=== PATIENT | female | born 1995 | race Caucasian/White ===

== ENCOUNTER 2018-03-11 09:35 | Emergency (ER) | payer OTHER ==
[~2018-03-11] VITALS: Ht 167.6 cm; Wt 72.6 kg
[~2018-03-11 09:35] MED LIST: ATOM40; Esgic Tablet1 EACH PO; LIDO2L MM; Naprosyn500 MG PO; Norco 5-325 Ta1 EACH PO; PRED15SY PO; TRAM50 PO; Ultram50 MG PO
[2018-03-11] MEDS ORDERED: NYST237S MT (10:54)
== END 2018-03-11 11:00 | disposition home or self-care (01) ==
LOC: ER 09:35
DX: S01.512A Laceration without foreign body of oral cavity, initial encounter (principal); F17.210 Nicotine dependence, cigarettes, uncomplicated; Z91.02 Food additives allergy status; W21.00XA Struck by hit or thrown ball, unspecified type, initial encounter
CPT/HCPCS: 99282

== ENCOUNTER → 2018-07-27 | Outpatient (CLI) | payer OTHER ==
[~2018-07-27] MED LIST changes: +NYST237S MT; +SERT50 PO
[2018-08-01 00:07] LABS: CHLAMYDIA TRACHOMATIS, NAA Negative (Negative); NEISSERIA GONORRHOEAE, NAA Negative (Negative)
== END | disposition home or self-care (01) ==
LOC: LAB SHORT 15:56 → LAB 15:56
PROVIDERS: Family Medicine
DX: Z11.3 Encounter for screening for infections with a predominantly sexual mode of transmission (principal)
CPT/HCPCS: 87491; 87591

== ENCOUNTER 2018-08-11 02:35 | Emergency (ER) | payer OTHER ==
[~2018-08-11] VITALS: Ht 162.6 cm; Wt 70.8 kg
[~2018-08-11 02:35] MED LIST changes: -SERT50 PO
[2018-08-11] MEDS ORDERED: SERT50 PO (02:54)
== END 2018-08-11 03:12 | disposition home or self-care (01) ==
LOC: ER 02:35
DX: K08.89 Other specified disorders of teeth and supporting structures (principal); F17.200 Nicotine dependence, unspecified, uncomplicated; Z91.02 Food additives allergy status; Z79.899 Other long term (current) drug therapy; F17.210 Nicotine dependence, cigarettes, uncomplicated
CPT/HCPCS: 99282; A9270

== ENCOUNTER → 2018-12-17 | Outpatient (CLI) | payer OTHER ==
[~2018-12-17] MED LIST changes: +SERT50 PO
[2018-12-20 03:07] LABS: CHLAMYDIA TRACHOMATIS, NAA Negative (Negative); NEISSERIA GONORRHOEAE, NAA Negative (Negative)
== END | disposition home or self-care (01) ==
LOC: LAB SHORT 13:00 → LAB 13:00
PROVIDERS: Family Medicine
DX: Z11.3 Encounter for screening for infections with a predominantly sexual mode of transmission (principal); N39.0 Urinary tract infection, site not specified
CPT/HCPCS: 87086; 87491; 87591

== ENCOUNTER 2019-01-08 22:46 | Emergency (ER) | payer OTHER ==
[~2019-01-08] VITALS: Ht 162.6 cm; Wt 70.3 kg
[2019-01-08] MEDS ORDERED: Amoxicillin500 MG PO (22:59)
== END 2019-01-08 23:16 | disposition home or self-care (01) ==
LOC: ER 22:46
DX: K08.89 Other specified disorders of teeth and supporting structures (principal); F17.210 Nicotine dependence, cigarettes, uncomplicated
CPT/HCPCS: 99282; A9270

== ENCOUNTER 2020-03-02 00:13 | Emergency (ER) | payer OTHER ==
[~2020-03-02] VITALS: Ht 162.6 cm; Wt 49.9 kg
[~2020-03-02 00:13] MED LIST changes: +Amoxicillin500 MG PO
[2020-03-02] MEDS ORDERED: HYDR1TAB94 PO (00:42)
[2020-03-02] MEDS ORDERED: AMOCLA875 PO (00:42)
== END 2020-03-02 01:00 | disposition home or self-care (01) ==
LOC: ER 00:13
DX: K08.89 Other specified disorders of teeth and supporting structures (principal); Z87.891 Personal history of nicotine dependence
CPT/HCPCS: 99282; A9270

== ENCOUNTER → 2021-04-10 | Outpatient (CLI) | payer OTHER ==
[~2021-04-10] MED LIST changes: +AMOCLA875 PO; +HYDR1TAB94 PO
== END | disposition home or self-care (01) ==
LOC: LAB SHORT 13:27 → LAB 13:27
DX: N39.0 Urinary tract infection, site not specified (principal)
CPT/HCPCS: 87086

== ENCOUNTER → 2021-04-10 | Outpatient (CLI) | payer OTHER ==
[2021-04-12 10:11] LABS: HIV AB/P24 AG SCREEN Non Reactive (Non Reactive)
[2021-04-13 05:11] LABS: CHLAMYDIA BY NAA Negative (Negative); GONOCOCCUS BY NAA Positive (Negative); TRICH VAG BY NAA Negative (Negative)
== END | disposition home or self-care (01) ==
LOC: LAB 13:48 → LAB SHORT 13:48
PROVIDERS: Physician Assistant Surgical
DX: Z72.51 High risk heterosexual behavior (principal)
CPT/HCPCS: 86592; 87389

== ENCOUNTER 2022-06-02 11:17 | Emergency (ER) | payer OTHER ==
[~2022-06-02] VITALS: Ht 162.6 cm; Wt 47.6 kg
[~2022-06-02 11:17] MED LIST changes: +KETO10 PO; +LIDO700A20 TOP
[2022-06-02 11:23] VITALS: BP 125/82
[2022-06-02 12:28] LABS: BASOPHILS ABSOLUTE AUTO 0.07 K/mm3 (0.00-0.23); BASOPHILS PERCENT AUTO 1 % (0-2); EOSINOPHILS ABSOLUTE AUTO 0.36 K/mm3 (0.00-0.68); EOSINOPHILS PERCENT AUTO 5 % (0-6); IMMATURE GRAN ABSOLUTE AUTO 0.01 K/mm3 (0.00-0.10); IMMATURE GRAN PERCENT AUTO 0 % (0-1); LYMPHOCYTES ABSOLUTE AUTO 1.84 K/mm3 (0.84-5.20); LYMPHOCYTES PERCENT AUTO 25 % (21-46); MONOCYTES PERCENT AUTO 11 % (4-13); Mean Corpuscular HGB 27.1 pg (26.0-34.0); Mean Corpuscular HGB Conc 32.4 g/dL (31.5-36.5); Mean Corpuscular Volume 84 fL (80-100); Mean Platelet Volume 9.3 fL (9.1-12.4); NEUTROPHILS PERCENT AUTO 59 % (41-73); Platelet Count 243 K/mm3 (150-400); RDW Coefficient Variation 12.2 % (11.7-14.2); RDW Standard Deviation 37.1 fL (35.1-46.3); Red Blood Cell Count 4.42 M/mm3 (3.80-5.20); White Blood Cell Count 7.48 K/mm3 (4.00-11.30)
[2022-06-02 12:44] LABS: Albumin/Globulin Ratio 1.1 (0.8-1.8); Bilirubin, Total 1.7 mg/dL (0.1-1.0); Bun/Creatinine Ratio 11.4 (12.0-20.0); Creatinine, Blood 0.7 mg/dL (0.40-1.00); Globulin, Blood 3.5 g/dL (2.2-4.0); Potassium, Blood 3.6 mmol/L (3.5-5.5); Total Protein, Blood 7.5 g/dL (6.4-8.2)
[2022-06-05 10:33] LABS: Bilirubin, Direct 0.3 mg/dL (0.0-0.3)
== END 2022-06-02 13:26 | disposition home or self-care (01) ==
LOC: ER 11:17
PROVIDERS: Physician Assistant
DX: I77.6 Arteritis, unspecified (principal); Z87.891 Personal history of nicotine dependence
CPT/HCPCS: 36415; 80053; 82248; 85025; 99282

== ENCOUNTER 2022-06-12 15:51 | Emergency (ER) | payer OTHER ==
[~2022-06-12] VITALS: Ht 162.6 cm; Wt 47.6 kg
[2022-06-12 16:06] VITALS: BP 117/73
== END 2022-06-12 17:13 | disposition home or self-care (01) ==
LOC: ER 15:51
DX: S62.346A Nondisplaced fracture of base of fifth metacarpal bone, right hand, initial encounter for closed fracture (principal); W22.8XXA Striking against or struck by other objects, initial encounter; Z87.891 Personal history of nicotine dependence
CPT/HCPCS: 73130

== ENCOUNTER → 2023-03-28 | Outpatient (CLI) | payer OTHER ==
[~2023-03-28] MED LIST changes: +CEPH500 PO; +Cephalexin250 MG/5 M PO; +METR500 PO; +MIRT15 PO; +ONDA4ODT MM
[2023-03-31 13:37] LABS: APTIMA MEDIA TYPE Urine; C. TRACHOMATIS BY TMA Negative (Negative); N. GONORRHOEAE BY TMA Negative (Negative); SPECIMEN SOURCE Urine
== END | disposition home or self-care (01) ==
LOC: LAB SHORT 16:35
PROVIDERS: Family Medicine
DX: Z11.3 Encounter for screening for infections with a predominantly sexual mode of transmission (principal); N39.0 Urinary tract infection, site not specified
CPT/HCPCS: 87086; 87491; 87591

== ENCOUNTER 2023-03-30 18:45 | Inpatient (IN) | payer OTHER ==
[~2023-03-30] VITALS: Ht 160 cm; Wt 52.2 kg
[~2023-03-30 18:45] MED LIST changes: -CEPH500 PO; -Cephalexin250 MG/5 M PO; -METR500 PO; -MIRT15 PO; -ONDA4ODT MM
[2023-03-30] MEDS ORDERED: Lactated Ringer's 1,000 ML IV ONE (19:40)
[2023-03-30] MEDS ORDERED: Ondansetron HCl 2 MG / ML 2ML Vial IV ONE (19:40)
[2023-03-30] MEDS ORDERED: MIRT15 PO (20:17)
[2023-03-30 21:39] LABS: Source, Urine Clean Catch
[2023-03-30 21:42] LABS: Appearance, Urine Clear (Clear); Bilirubin, Urine Neg (Neg); Blood, Urine Neg (Neg); Color, Urine Yellow (P-Yellow); Glucose Qualitative, Urine Neg (Neg); Ketones, Urine Neg (Neg); Leukocyte Esterase, Urine 1+ (Neg); Nitrite, Urine Neg (Neg); Protein, Urine Neg (Neg); Specific Gravity, Urine 1.005 (1.003-1.022); Urobilinogen, Urine NORM (Normal)
[2023-03-30 21:52] LABS: Bacteria Rare /hpf; Red Blood Cells, Urine Not Seen /hpf (0-2); Squamous Epithelial Cells Few /hpf (Few); White Blood Cells, Urine 0-2 /hpf (0-5)
[2023-03-31] MEDS ORDERED: LORazepam 2 MG/ML 1ML Injection IV ONE (01:05)
[2023-03-31] MEDS ORDERED: Ampicillin Sod/Sulbactam Sod 1.5 GM in NS 50 ML IV ONE (02:00)
[2023-03-31] MEDS ORDERED: MetroNIDAZOLE 500MG/NS 100 ml 100 ML IV SCH (02:40)
[2023-03-31] MEDS ORDERED: NS 250 ML IV PRN (03:20)
[2023-03-31 03:47] VITALS: BP 106/72
--- NOTE | 2023-03-31 06:44 | NUR ---
SHIFT SUMMARY PT IS HERE WITH ABD PAIN AND IT WAS DISCOVERED ON CT THAT THE PT HAS A [employer]AR[employer] ABSCESS. DR. ROBERTSON TO SEE PT THIS MORNING. PT IS ALERT AND ORIENTED AND STABLE ON HER FEET. VITAL SIGNS HAVE BEEN STABLE AND AFTER HER ADMISSION, PT HAS RESTED FOR THE REMAINDER OF THE SHIFT. BED IS IN LOWEST POSITION, CALL LIGHT IS WITHIN REACH.
[2023-03-31 07:17] VITALS: BP 110/66
--- NOTE | 2023-03-31 11:19 | NUR ---
PATIENT ANXIETY SHE APPEARS TO BE ANXIOUS WHILE SHE WAS GETTING SET UP FOR HER DOSE OF ABX. PER HER MALE VISITOR, "SHE WOULD LIKE TO KNOW EVERYTHING WE ARE GIVING HER BECAUSE SHE IS VERY ANXIOUS". ASSURED THEM THAT WE DON'T GIVE ANYTHING WITHOUT LETTING HER KNOW WHAT WE ARE GIVING HER.
[2023-03-31 14:07] VITALS: BP 108/66
[2023-03-31 15:08] LABS: BASOPHILS ABSOLUTE AUTO 0.06 K/mm3 (0.00-0.23); BASOPHILS PERCENT AUTO 0 % (0-2); EOSINOPHILS ABSOLUTE AUTO 0.12 K/mm3 (0.00-0.68); EOSINOPHILS PERCENT AUTO 1 % (0-6); Hematocrit 34.2 % (33.0-51.0); Hemoglobin 11.2 g/dL (11.5-16.0); IMMATURE GRAN ABSOLUTE AUTO 0.07 K/mm3 (0.00-0.10); IMMATURE GRAN PERCENT AUTO 0 % (0-1); LYMPHOCYTES ABSOLUTE AUTO 1.74 K/mm3 (0.84-5.20); LYMPHOCYTES PERCENT AUTO 11 % (21-46); MONOCYTES ABSOLUTE AUTO 1.28 K/mm3 (0.16-1.47); MONOCYTES PERCENT AUTO 8 % (4-13); Mean Corpuscular HGB 26.9 pg (26.0-34.0); Mean Corpuscular HGB Conc 32.7 g/dL (31.5-36.5); Mean Corpuscular Volume 82 fL (80-100); Mean Platelet Volume 8.2 fL (9.1-12.4); NEUTROPHILS ABSOLUTE AUTO 13.05 K/mm3 (1.96-9.15); NEUTROPHILS PERCENT AUTO 80 % (41-73); Platelet Count 536 K/mm3 (150-400); RDW Coefficient Variation 11.9 % (11.7-14.2); Red Blood Cell Count 4.17 M/mm3 (3.80-5.20); White Blood Cell Count 16.32 K/mm3 (4.00-11.30)
[2023-03-31] MEDS ORDERED: CefTRIAXone 500 MG Vial IM ONE (17:00)
[2023-03-31] MEDS ORDERED: CEPH500 PO (17:04)
[2023-03-31] MEDS ORDERED: METR500 PO (17:04)
--- NOTE | 2023-03-31 18:37 | NUR ---
DISCHARGE SUMMARY S/P TUBO-OVARIAN ABSCESS, A/OX4, VSS, TOLERATING PO, INDEPENDENT IN THE ROOM AND HALLS, REPORTS PAIN TOLERABLE AT A 2/10 ON A 0-10 PAIN SCALE. DISCUSSED DSICHARGE INSTRUCTIONS INCLUDING HOME CARE, MEDICATIONS, AND FOLLOW UP APPOINTMENTS. NO QUESTIONS AT THIS TIME. PT TAKEN OUT VIA WC TO PRIVATE AUTO TO GO HOME.
[2023-04-01] MEDS ORDERED: ONDA4ODT MM (22:16)
[2023-04-01] MEDS ORDERED: Cephalexin250 MG/5 M PO (22:16)
== END 2023-03-31 18:24 | disposition home or self-care (01) | DRG 759 ==
LOC: ER 18:45 → SURS 03-31 00:51
PROVIDERS: Student in an Organized Health Care Education/Training Program; ADMIT Obstetrics & Gynecology
DX: A54.24 Gonococcal female pelvic inflammatory disease (principal); F17.290 Nicotine dependence, other tobacco product, uncomplicated
CPT/HCPCS: 36415; 74177; 81001; 84703; 85025; 96374-59; 96375; 99285-25; J0295; J0696; J2060; J2405; J7050; J7120; Q9967

== ENCOUNTER 2023-04-01 18:45 | Emergency (ER) | payer OTHER ==
[~2023-04-01] VITALS: Ht 160 cm; Wt 52.2 kg
[~2023-04-01 18:45] MED LIST changes: +CEPH500 PO; +METR500 PO; +MIRT15 PO
[2023-04-01 20:56] VITALS: BP 135/79
[2023-04-01] MEDS ORDERED: Cephalexin Monohydrate 250 MG/5 ML UD BTL PO ONE (22:00)
[2023-04-01] MEDS ORDERED: Ondansetron 4 MG SoluTab SL ONE (22:05)
[2023-04-01] MEDS ORDERED: Cephalexin250 MG/5 M PO (22:16)
[2023-04-01] MEDS ORDERED: ONDA4ODT MM (22:16)
== END 2023-04-01 22:32 | disposition home or self-care (01) ==
LOC: ER 18:45
DX: Z76.89 Persons encountering health services in other specified circumstances (principal); N83.209 Unspecified ovarian cyst, unspecified side; Z87.891 Personal history of nicotine dependence; Z79.899 Other long term (current) drug therapy
CPT/HCPCS: 99281; A9270

== ENCOUNTER 2024-12-30 13:41 | Emergency (ER) | payer OTHER ==
[~2024-12-30] VITALS: Ht 160 cm; Wt 55.3 kg
[~2024-12-30 13:41] MED LIST changes: +Cephalexin250 MG/5 M PO; +ONDA4ODT MM
[2024-12-30 14:15] VITALS: BP 108/76
[2024-12-30] MEDS ORDERED: Percocet 5-3251 EACH PO (14:21)
== END 2024-12-30 14:23 | disposition home or self-care (01) ==
LOC: ER 13:41
DX: M54.42 Lumbago with sciatica, left side (principal); Z87.891 Personal history of nicotine dependence; Z79.899 Other long term (current) drug therapy
CPT/HCPCS: 99282